=== PATIENT | male | born 1950 | race Caucasian/White ===

== ENCOUNTER 2020-09-12 09:25 | Inpatient (IN) | payer MEDICARE, MEDICAID ==
[~2020-09-12] VITALS: Ht 177.8 cm; Wt 109.0 kg
[2020-09-12] VITALS (8 sets, daily range): BP systolic 94–131; BP diastolic 67–76
[~2020-09-12 09:25] MED LIST: ALBU8.5H INH; ATOR40TA75 PO; ELIQ5TAB PO; HYDR-3490 PO; LISI10TA22; LISI20TA33 PO; SYMB16INH INH
[2020-09-12 11:01] LABS: BASO # 0.1 10^3/uL (0.0-0.2); BASO % 0.6 % (0.0-1.0); EOS # 0.1 10^3/uL (0.0-0.5); EOS % 1.2 % (0.0-3.0); HEMATOCRIT 46.1 % (42.0-52.0); HEMOGLOBIN 15.2 g/dl (13.5-17.5); LYMPH # 2.1 10^3/uL (1.5-5.0); LYMPH % 21.1 % (24.0-44.0); MEAN CORPUSCULAR HEMOGLOBIN 28.2 pg (27.0-33.0); MEAN CORPUSCULAR VOLUME 85.5 fl (80.0-96.0); MONO # 0.9 10^3/uL (0.0-0.8); MONO % 8.7 % (2.0-8.0); NEUTROPHILS # 6.8 10^3/uL (1.5-8.5); NEUTROPHILS % 68.3 % (36.0-66.0); PLATELET COUNT, AUTOMATED 301 10^3/uL (150-450); RED BLOOD COUNT 5.39 10^6/uL (4.30-6.10)
--- NOTE | 2020-09-12 11:17 | REP ---
INDICATION: sob. COMPARISON: None. TECHNIQUE: AP portable seated FINDINGS: The lungs are hyperinflated. There is no pleural effusion or lateral pleural thickening. No apical scarring or pneumothorax. Some patchy atelectatic change or fibrosis in the left base. No mass, dense consolidation with air bronchograms or pulmonary nodule. There cuffed bronchi in the perihilar regions which may reflect reactive airway disease or bronchitis. Pulmonary arteries are prominent centrally, this may reflect some degree of pulmonary artery hypertension, presumably on the basis of COPD. No gross cardiomegaly vascular redistribution or edema. Mildly calcified tortuous aorta without aneurysm. Airway intact. Some degenerative changes in the spine. No free air under the diaphragm. IMPRESSION: 1. Some changes of COPD with some perihilar peribronchial thickening that may reflect reactive airway disease or bronchitis. Some subtle patchy atelectasis or fibrotic change in the left base without dense consolidation, pleural effusion or other acute finding. <Electronically signed by Victor Manuel Dotson > 09/12/20 [id number]
--- NOTE | 2020-09-12 11:39 | REP ---
INDICATION: TIA. COMPARISON: None. TECHNIQUE: Helical scanning is acquired. 5 mm axial images were reformatted. Coronal MPR images were generated. FINDINGS: Bone window settings demonstrate an intact bony calvarium. There is no evidence of skull fracture or incidental bony calvarial lesion. The visualized paranasal sinuses appear clear. No intraorbital abnormality is seen. On soft tissue window setting images; the lateral, third, and fourth ventricles are normal in size and position. Edmonds-white differentiation pattern is normal above and below the tentorium. There are is no evidence of intracranial hemorrhage. No mass, edema, infarction, or midline shift is seen. No extra-axial fluid collection is appreciated. There is mild to moderate generalized volume loss. Vascular calcification is noted in the distal internal carotid arteries. Small-vessel atherosclerotic changes are seen in the periventricular white matter of the frontal lobes bilaterally. IMPRESSION: Vascular calcification, generalized volume loss, and small vessel changes. No acute intracranial abnormality.. <Electronically signed by Johnathan Nevarez > 09/12/20 [id number]
[2020-09-12] MEDS ORDERED: ONDANSETRON 4MG/2ML VIAL As Ordered ONE (12:56)
[2020-09-12] MEDS ORDERED: ISOVUE-370 76% 100ML VIAL As Ordered ONE (13:12)
[2020-09-12] MEDS ORDERED: ONDANSETRON 4MG/2ML VIAL IV ONE (13:35)
--- NOTE | 2020-09-12 13:37 | REP ---
INDICATION: trauma. COMPARISON: Noncontrast CT 1 hour and 46 minutes ago. TECHNIQUE: CT brain performed in the axial plane. Coronal reconstruction images are performed. FINDINGS: Lateral ventricles are midline symmetric and dilated there dilated in proportion to the diffuse cerebral atrophy which is moderate and greatest in the temporal and frontal lobes. Third and 4th ventricles are also mildly prominent and unchanged heterogeneous low-attenuation white matter changes bilaterally in the hemispheres representing chronic small vessel white matter ischemic change. Edmonds-white junction differentiation is well maintained. I do not see a vascular territory infarct, intracranial hemorrhage, mass, mass effect or edema. Subtle low-attenuation noted in the basal ganglia symmetric fashion over the thalami. These may be old thalamic infarcts, unchanged. Posterior fossa shows brainstem unremarkable there is no mass or bleed in the posterior fossa. The basal cisterns are intact. Skull base bone windows show mastoids intact. The sinuses show some new fluid in the left maxillary antrum and fracture of the lateral sinus wall superiorly as a new finding since the study at 11:05 A.M. Frontal sinuses sphenoids were intact the right maxillary antrum shows minor mucosal thickening in its floor. There is minor ethmoid sinus mucosal thickening in a deviation of the nasal septum towards the left. Patient now has a fracture of the left zygomatic arch as a new finding. There is soft tissue swelling adjacent. Right-sided zygomatic arch intact calvarium shows no fracture. The orbital floors appear intact. The orbital struts were intact. Left new IMPRESSION: No intracranial hemorrhage, acute infarct, mass or mass effect. Ventriculomegaly and proportionate atrophy, moderate. Chronic small vessel ischemic changes and symmetric old bilateral thalamic lacunar infarcts. These are stable. Air-fluid level in the left maxillary sinus with fracture of the lateral superior aspect of that sinus wall as a new finding compared to the study earlier today. In addition, adjacent to this there is a new fracture of the left zygomatic arch, also not on the earlier study. I cannot confirm other fractures in the interval. There are no other interval changes. <Electronically signed by Victor Manuel Dotson > 09/12/20 0255
--- NOTE | 2020-09-12 14:04 | REP ---
INDICATION: CVA COMPARISON: None. TECHNIQUE: Contrast enhancement dose is 100 mL of intravenous Isovue 370. Helical scanning is acquired. 2 mm axial images are re-formatted. Coronal and sagittal MPR images are generated. Coronal and sagittal MIP and oblique MPR images are generated. 3D surface rendered images are generated and viewed rotationally. FINDINGS: There is good opacification of the arterial tree. The aortic arch contains a few calcifications but no evidence of aneurysm or dissection is seen. Great vessel origins are unremarkable. There is spray artifact from un diluted contrast opacified blood in the subclavian artery obscuring a portion of the adjacent left common carotid artery. Otherwise, the left common carotid artery is unremarkable. The left carotid bifurcation is widely patent. There is no evidence of internal carotid artery stenosis or occlusion. The right common carotid artery is unremarkable. The right carotid bifurcation contains some calcification but there is no evidence of ICA stenosis. The cervical internal carotid artery on the right is unremarkable. The vertebral arteries are patent bilaterally and right is very slightly larger than the left. IMPRESSION: Minimal atherosclerotic changes. No high-grade stenosis or occlusion. [place] artifact interferes with visualization of the proximal most segment of the left common carotid artery. <Electronically signed by Johnathan Nevarez > 09/12/20 1400
--- NOTE | 2020-09-12 14:05 | REP ---
INDICATION: CVA. COMPARISON: None. TECHNIQUE: CT contrast dose: 100 ml of intravenous Isovue 370. CT technique: Helical scanning is acquired. 2 mm axial images are reformatted. Maximal intensity projection and multiplanar re-formation images are generated along with 3-D surface rendered color imaging. FINDINGS: There is good opacification of the arterial tree. The distal vertebral arteries are patent, right larger than left. Basilar artery is widely patent. Posterior cerebral and superior cerebellar vessels are unremarkable. The distal internal carotid arteries show calcification in the carotid siphons. No stenosis is seen. Anterior middle cerebral arteries are patent bilaterally. There is no evidence of baltazar aneurysm or arteriovenous malformation. No vessel cutoff is seen. Dural sinuses are unremarkable. No venous abnormality is observed. IMPRESSION: Unremarkable CT angiography of the brain. <Electronically signed by Johnathan Nevarez > 09/12/20 [id number]
--- NOTE | 2020-09-12 14:09 | REP ---
INDICATION: trauma. COMPARISON: None. TECHNIQUE: Trauma CT protocol with coronal and sagittal bone window reconstructions. FINDINGS: [employer] image shows cervical collar the lateral projection. The sagittal reconstruction show slight loss of lordosis which may be due to the cervical collar there is spondylosis with anterior osteophytes from C3-4 through C7-T1. Disc space heights slightly narrowed at all of these levels, sparing only the C2-3 level. There is no compression deformity or destructive lesion. No prevertebral swelling. Dens shows normal relationship with the anterior arch of C1 in the craniocervical junction intact. On the coronal projections the dens articulates a fairly symmetric fashion with the lateral masses of the C1. Posterior elements show spinous processes, lamina, pedicles, facets, transverse processes and transverse foramina without acute finding there are degenerative facet changes at multiple levels. No visible fractures multifactorial of contributions to some mild central canal stenosis at C4-5, C5-6 and C6-7. Uncinate spurring and facet arthropathy contribute to some mild encroachment at C3-4 on the right with the other foramina adequate or marginally adequate. The upper thoracic vertebral bodies and portions of the 1st 3 paired ribs appear grossly intact. Visible lung apices without acute finding. Neck soft tissues grossly intact. IMPRESSION: 1. Diffuse cervical spondylosis from C3-4 through C6-7 with combined factors contributing to some mild central canal stenosis at levels described above. No compression fracture or malalignment. No posterior element fracture. Some foraminal encroachment on the right at C3-4 with the other foramina adequate or marginally adequate. 2. Craniocervical junction intact the dens articulates normally with C1. No acute finding. <Electronically signed by Victor Manuel Dotson > 09/12/20 [id number]
[2020-09-12 14:51] LABS: RSV AMPLIFICATION NEGATIVE (NEGATIVE)
[2020-09-12] MEDS ORDERED: ACETAMINOPHEN TAB 650MG DOSE (2X325MG) PO PRN (15:15)
[2020-09-12] MEDS ORDERED: ALBUTEROL 90 MCG/ACT 8GM HFA INHALER INH PRN (15:15)
[2020-09-12] MEDS ORDERED: LIDOCAINE W/EPINEPHRINE 1% 20ML VIAL SC ONE (15:20)
--- NOTE | 2020-09-12 16:00 | HPEPDOC ---
General Date of Admission 09/12/20 Date of Service: Sep 12, 2020 Chief Complaint The patient is a 69-year-old male admitted with a reason for visit of Multiple Falls. Source: Patient Exam Limitations: No limitations History of Present Illness Patient 69 years old male with past medical history of hypercholesteremia, pulmonary emboli currently on Eliquis, hypertension presented to hospital with left arm weakness. Patient stated that yesterday he started feeling that left arm is weak, he has this feeling around couple of hours and then it completely resolved. Patient denied any fever, chills, nausea, vomiting any problem with speech, numbness. Today in the morning he started feeling that his left arm is weak and he decided to come to emergency. When he arrived to ER his symptoms resolved, CT scan was negative, patient was diagnosed with TIA and was ready to be discharged, however he developed mechanical fall, he fell down on the left side of his body, hit his head and was unresponsive. He did not have palpable pulses. 2 rounds of CPR was done, patient regained consciousness and pulse. When I saw him in ER he was lying on the bed. Patient reported that he has again left arm weakness and left leg weakness. CT head was repeated and it was negative for acute bleed or stroke, but shows Air-fluid level in the left maxillary sinus with fracture of the lateral superior aspect of that sinus wall as a new finding compared to the study earlier today. In addition, adjacent to this there is a new fracture of the left zygomatic arch, also not on the earlier study. Neck CTA shows no high- grade stenosis or occlusion, CTA of the brain unremarkable, Dr. Burgos was contacted by ER physician Dr. Magana, he recommended broad-spectrum antibiotics no surgical intervention indicated at this time. Home Medications Scheduled Apixaban (Eliquis) 5 Mg Tablet, 5 MG PO BID, (Reported) Atorvastatin Calcium (Atorvastatin Calcium) 40 Mg Tablet, 40 MG PO DAILY, ( Reported) Budesonide/Formoterol (Symbicort 160-4.5 Mcg Inhaler) 6 Gm Hfa.aer.ad, 2 PUFFS INH BID, (Reported) Hydrochlorothiazide (Hydrochlorothiazide) 25 Mg Tablet, 25 MG PO DAILY, (Reported) Lisinopril (Lisinopril) 20 Mg Tablet, 20 MG PO DAILY, (Reported) Scheduled PRN Albuterol Sulfate (Albuterol Sulfate Hfa) 8.5 Gm Hfa.aer.ad, 2 PUFFS INH QID PRN for SHORTNESS OF BREATH, (Reported) Allergies Coded Allergies: No Known Allergies (Verified Allergy, Unknown, 08/24/20) Past Medical History Medical History 1. Hypertension 2. Bronchial asthma 3. obesity 4. Arthritis. Patient has been prescribed walker and cane but he does not use it Surgical History Patient has hernia but never had surgery for that. Family History I personally reviewed family history and found not pertinent Social History * Smoker: Denies Alcohol: Denies Drugs: denies A-FIB/CHADSVASC A-FIB History Current/History of A-Fib/PAF?: No Current PO Anticoag Therapy: No Review of Systems Constitutional: Denies: Chills, Fever Eyes: Denies: Pain ENT: Denies: Head Aches Skin: Reports: Breakdown (Left forehead laceration); Denies: Rash Pulmonary: Denies: Dyspnea Cardiovascular: Denies: Chest Pain Gastrointestinal: Denies: Nausea, Vomiting Hematologic: Denies: Bruising Musculoskeletal: Denies: Neck Pain Neurological: Reports: Weakness (Left arm and left leg) Psych: Reports: Mood Normal Physical Examination General Exam: Positive: Alert, Cooperative Eye Exam: Positive: PERRLA ENT Exam: Positive: Other ENT (Left forearm laceration, tenderness over left zygomatic bone); Negative: Atraumatic Neck Exam: Positive: Supple Chest Exam: Positive: Clear to auscultation Heart Exam: Positive: Rate Normal Telemetry: Positive: No significant arrhythmia Extremity Exam: Negative: Clubbing Skin Exam: Positive: Nl turgor and temperature Neuro Exam: Positive: Strength at 5/5 X4 ext (Left upper extremities 2/5, left lower extremities 2/5, right upper extremities 4/5, right lower extremities 3/5), Reflexes 2+ Psych Exam: Positive: Oriented x 3 Vital Signs Vital Signs Date Time Temp Pulse Resp B/P (MAP) Pulse Ox O2 Delivery O2 Flow Rate FiO2 09/12/20 14:00 64 97 09/12/20 12:30 137/97 (110) 09/12/20 10:00 Room Air 09/12/20 09:44 97.6 26 Laboratory Data Labs 24H Laboratory Tests 2 09/12/20 10:50: Immature Granulocyte % (Auto) 0.1, Neutrophils (%) (Auto) 68.3H, Lymphocytes (%) (Auto) 21.1L, Monocytes (%) (Auto) 8.7H, Eosinophils (%) (Auto) 1.2, Basophils (%) (Auto) 0.6, Neutrophils # (Auto) 6.8, Lymphocytes # (Auto) 2.1, Monocytes # (Auto) 0.9H, Eosinophils # (Auto) 0.1, Basophils # (Auto) 0.1, Nucleated Red Blood Cells % (auto) 0.0 09/12/20 10:51: POC Glucose (Misc Panel) 105, POC Sodium (Misc Panel) 137, POC Potassium (Misc Panel) 4.4, POC Chloride (Misc Panel) 100, POC Total CO2 (Misc Panel) 23.0, POC Blood Urea Nitrogen (Misc Panel 19, POC Ionized Calcium (Misc Panel) 5.0, POC Creatinine (Misc Panel) 1.4H, POC Hematocrit (Misc Panel) 46.0 09/12/20 14:02: Coronavirus (COVID-19)(PCR) NEGATIVE, Influenza Type A (RT-PCR) NEGATIVE, Influenza Type B (RT-PCR) NEGATIVE, Respiratory Syncytial Virus (PCR) NEGATIVE CBC/BMP Laboratory Tests 09/12/20 10:50 Assessment/Plan Patient 69 years old male with past medical history of hypercholesteremia, pulmonary emboli currently on Eliquis, hypertension presented to hospital with left arm weakness. Patient stated that yesterday he started feeling that left arm is weak, he has this feeling around couple of hours and then it completely resolved. Patient denied any fever, chills, nausea, vomiting any problem with speech, numbness. Today in the morning he started feeling that his left arm is weak and he decided to come to emergency. When he arrived to ER his symptoms resolved, CT scan was negative, patient was diagnosed with TIA and was ready to be discharged, however he developed mechanical fall, he fell down on the left side of his body, hit his head and was unresponsive. He did not have palpable pulses. 2 rounds of CPR was done, patient regained consciousness and pulse. When I saw him in ER he was lying on the bed. Patient reported that he has again left arm weakness and left leg weakness. CT head was repeated and it was negative for acute bleed or stroke, but shows Air-fluid level in the left maxillary sinus with fracture of the lateral superior aspect of that sinus wall as a new finding compared to the study earlier today. In addition, adjacent to this there is a new fracture of the left zygomatic arch, also not on the earlier study. Neck CTA shows no high- grade stenosis or occlusion, CTA of the brain unremarkable, Dr. Burgos was contacted by ER physician Dr. Magana, he recommended broad-spectrum antibiotics no surgical intervention indicated at this time. Problems (1) CVA (cerebral vascular accident) Status: Acute Problem Text: CT head did not show acute bleeding or stroke CTA neck did not show significant stenosis, CTA brain negative for stenosis or occlusion We will proceed with MRI Continue statin Patient takes anticoagulation with Eliquis I discussed the case with neurologist Dr. Hagan, he recommended to start aspirin 81 mg if MRI negative for bleeding. We will continue to continue to monitor neuro vital signs (2) Closed fracture of left zygomatic bone Status: Acute Problem Text: No indication for surgical intervention for now (3) Maxillary fracture, left side, initial encounter for closed fracture Status: Acute Problem Text: No indication for surgical intervention for now Dr. Diaz recommended 7 days of broad-spectrum antibiotic (4) History of pulmonary embolism Status: Chronic Problem Text: We will continue Eliquis 5 mg twice daily (5) Hypertension Status: Chronic Problem Text: Continue home meds Blood pressure is under control (6) Hyperlipidemia Status: Chronic Problem Text: Continue statin (7) Unresponsiveness Status: Acute Problem Text: I discussed the case with Dr. Edwards emergency physician, most likely patient developed vasovagal syncope. No evidence of cardiac arrest on monitor. When patient regained consciousness he was on the sinus rhythm Plan / VTE VTE Prophylaxis Ordered?: Yes SANTOS LEZAMA DO Sep 12, 2020 16:00
[2020-09-12 17:44] LABS: ALBUMIN 3.6 GM/DL (3.2-5.2); BILIRUBIN,DIRECT 0.2 MG/DL (0.0-0.2); BILIRUBIN,TOTAL 0.8 MG/DL (0.2-1.0); TOTAL PROTEIN 6.9 GM/DL (6.4-8.2)
[2020-09-12] MEDS ORDERED: SYMBICORT 160/4.5MCG INHALER 6GM INH SCH (20:00)
--- NOTE | 2020-09-12 20:03 | REPVR ---
PROCEDURE INFORMATION: Exam: MR Head Without Contrast Exam date and time: 09/12/2020 7:10 PM Age: 69 years old Clinical indication: Injury or trauma; Without loss of consciousness; Without residual foreign body; Walking, difficulty and weakness, extremity; Bilateral; Injury date: 09/12/20; Injury details: Fall head lac to RT forehead; Patient HX: Fall with head laceration RT forehead, bue and le weakness; Additional info: Stroke TECHNIQUE: Imaging protocol: MR of the head without contrast. COMPARISON: CT Head without contrast 09/12/2020 12:49 PM FINDINGS: Brain: No acute infarct identified on the diffusion-weighted imaging. No parenchymal hemorrhage. The brain demonstrates generalized volume loss. Patchy foci of increased signal intensity in the deep and subcortical white matter most likely representing chronic small vessel ischemic change. Small areas of FLAIR signal abnormality: right frontal, left parietal and left occipital, likely focal chronic infarcts. There are focal, chronic thalamic lacunar infarcts. Cerebral ventricles: The ventricles are enlarged in keeping with volume loss. Bones/joints: Unremarkable. Paranasal sinuses: Fluid is again demonstrated in the left maxillary sinus. Elsewhere, sinus mucosal thickening. Retention cyst or polyp in the right maxillary sinus. Mastoid air cells: Normal as visualized. No mastoid effusion. Orbital cavity: Unremarkable. Soft tissues: Unremarkable. IMPRESSION: 1. Images are motion degraded. 2. No evidence of acute infarct. Electronically signed by: Jessa Abbott On 09/12/2020 20:02:51 PM
--- NOTE | 2020-09-12 20:06 | REPVR ---
PROCEDURE INFORMATION: Exam: MRA Head Without Contrast; Arteriography Exam date and time: 09/12/2020 7:37 PM Age: 69 years old Clinical indication: Patient HX: Fall with head laceration RT forehead, bue and le weakness; Additional info: Doctor request TECHNIQUE: Imaging protocol: Magnetic resonance angiography head without contrast. Exam focused on the arteries. COMPARISON: CT ANGIO HEAD 09/12/2020 1:13 PM FINDINGS: ANTERIOR CIRCULATION: Right internal carotid artery: Intracranial segment is patent with no significant stenosis. No aneurysm. Right middle cerebral artery: No occlusion or significant stenosis. No aneurysm. Right anterior cerebral artery: No occlusion or significant stenosis. No aneurysm. Left internal carotid artery: Intracranial segment is patent with no significant stenosis. No aneurysm. Left middle cerebral artery: No occlusion or significant stenosis. No aneurysm. Left anterior cerebral artery: Patent. No aneurysm. 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 POSTERIOR CIRCULATION: Right vertebral artery: The right vertebral artery is below the imaging slab. Left vertebral artery: The left vertebral artery is below the imaging slab. Basilar artery: No occlusion or significant stenosis. No aneurysm. Right posterior cerebral artery: No occlusion or significant stenosis. No aneurysm. Left posterior cerebral artery: No occlusion or significant stenosis. No aneurysm. IMPRESSION: No proximal intracranial arterial occlusion. Electronically signed by: Jessa Abbott On 09/12/2020 20:05:54 PM
[2020-09-12] MEDS ORDERED: APIXABAN 5 MG TAB (ELIQUIS) PO SCH (21:00)
[2020-09-12] MEDS ORDERED: AUGMENTIN 875 MG TAB PO SCH (21:00)
--- NOTE | 2020-09-12 21:20 | REPVR ---
PROCEDURE INFORMATION: Exam: MR Cervical Spine Without Contrast Exam date and time: 09/12/2020 8:29 PM Age: 69 years old Clinical indication: Injury or trauma; Without foreign body; Injury date: 09/12/20; Injury details: Fall with head laceration RT forehead, bue and le weakness; Additional info: R/O spine compression TECHNIQUE: Imaging protocol: Multiplanar magnetic resonance images of the cervical spine without contrast. COMPARISON: CT Spine,cervical w/o contrast 09/12/2020 12:49 PM FINDINGS: Vertebrae: There is straightening of the cervical lordosis which may be positional or due to muscle spasm. No acute fracture seen. Spinal cord: Suspect abnormal cord signal on the T2 weighted imaging at the C3-C4 level. Disc desiccation from C2-C3 through C6-C7. [id number] disc height loss and spondylosis from C3-C4 through C6-C7. Mild endplate degenerative changes elsewhere. C2-C3: The central spinal canal remains patent. No high-grade neural foraminal stenoses. C3-C4: Disc osteophyte complex causing moderate to severe central spinal canal stenosis; a paucity of CSF anterior and posterior to the cord. On the T2 weighted imaging, concern for patchy increased signal intensity in the cervical cord, for example image 20 series 501, image 7 series 401. Uncovertebral and facet arthropathy causing severe bilateral neural foraminal stenoses. C4-C5: Disc osteophyte complex and ligamentum flavum buckling causing moderate central spinal canal stenosis. Uncovertebral and facet arthropathy causing severe bilateral neural foraminal stenoses. C5-C6: Left eccentric disc osteophyte complex causing mild central spinal canal stenosis. Slight left ventral cord flattening without cord myelopathy. Uncovertebral and facet arthropathy causing moderate to severe bilateral neural foraminal stenoses. C6-C7: The central spinal canal is patent. Uncovertebral and facet arthropathy causing moderate right neural foraminal stenosis. The left neural foramen remains patent. C7-T1: Disc osteophyte complex does not contribute to significant central spinal canal stenosis. Uncovertebral and facet arthropathy causing moderate right and mild left neural foraminal stenoses. Soft tissues: No discrete high-grade ligamentous injury identified. Vertebral arteries: Expected flow voids in the vertebral arteries. IMPRESSION: 1. Images are motion degraded. 2. Moderate to severe central spinal canal stenosis at C3-C4. Suspect cord myelomalacia versus myelopathy (could reflect contusion or inflammation). To better assess the C3-C4 level, limited repeat MRI imaging could be obtained given the presence of motion artifacts on this study. 3. Moderate central spinal canal stenosis at C4-C5. 4. Multilevel high-grade degenerative neural foraminal stenoses. Electronically signed by: Jessa Abbott On 09/12/2020 21:19:58 PM
[2020-09-12] MEDS ORDERED: NS 1,000 ML IV SCH (21:25)
--- NOTE | 2020-09-12 21:25 | DS.PDOC ---
Discharge Summary General Date of Admission Sep 12, 2020 at 15:11 Date of Discharge 09/12/20 Discharge Summary PROCEDURES PERFORMED DURING STAY: [None]. ADMITTING/DISCHARGE DIAGNOSES: Suspected acute cord compression resulting in acute myelopathy COMPLICATIONS/CHIEF COMPLAINT: Cva,Closed Fracture Of Left Zygomatic Bone,Fall. HISTORY OF PRESENT ILLNESS: From admitting physicians H&P: Patient 69 years old male with past medical history of hypercholesteremia, pulmonary emboli currently on Eliquis, hypertension presented to hospital with left arm weakness. Patient stated that yesterday he started feeling that left arm is weak, he has this feeling around couple of hours and then it completely resolved. Patient denied any fever, chills, nausea, vomiting any problem with speech, numbness. Today in the morning he started feeling that his left arm is weak and he decided to come to emergency. When he arrived to ER his symptoms resolved, CT scan was negative, patient was diagnosed with TIA and was ready to be discharged, however he developed mechanical fall, he fell down on the left side of his body, hit his head and was unresponsive. He did not have palpable pulses. 2 rounds of CPR was done, patient regained consciousness and pulse. When I saw him in ER he was lying on the bed. Patient reported that he has again left arm weakness and left leg weakness. CT head was repeated and it was negative for acute bleed or stroke, but shows Air-fluid level in the left maxillary sinus with fracture of the lateral superior aspect of that sinus wall as a new finding compared to the study earlier today. In addition, adjacent to this there is a new fracture of the left zygomatic arch, also not on the earlier study. Neck CTA shows no high-grade stenosis or occlusion, CTA of the brain unremarkable, Dr. Burgos was contacted by ER physician Dr. Magana, he recommended broad-spectrum antibiotics no surgical intervention indicated at this time. HOSPITAL COURSE: My involvement in the care of the patient was essentially to transfer him overnight to [facility] there was concern that the patient had acute cord compression causing upper and lower extremity weakness. I spoke with neurologist Dr. Luz who recommended transfer I also spoke with [facility] neuro ICU Dr. Lancaster who accepted the patient and recommended patient be airlifted - unfortunately due to bad weather there wont be flights tonight so patient will be transferred by ambulance instead. Patient was hemodynamically stable at time of transfer his blood pressure was 127/76 with a map of 94. IV fluids were started. MRI cervical and thoracic spine imaging was pushed to [facility] by her phlebotomy support tech. All imaging done to be printed and given at time of transfer. DISCHARGE MEDICATIONS: Please see below. ALLERGIES: Please see below. PHYSICAL EXAMINATION ON DISCHARGE: VITAL SIGNS: Please see below. Patient was able to speak in full sentences did not appear to be in distress he is breathing comfortably at 98% on room air his heart rate was regularly regular without appreciable murmurs. He had loss of sensation over his upper and lower extremities. He complete loss of strength in his left upper and lower extremit ies unable to move against gravity or wiggle his toes or fingers. On the right side he was able to wiggle his fingers on the right upper extremity but not against gravity he was also able to slightly wiggle his right toes but unable to move his leg against gravity. LABORATORY DATA: Please see below. IMAGING: See chart PROGNOSIS: Guarded ACTIVITY: [As tolerated]. DISCHARGE PLAN: Transfer to [facility] to neuro ICU DISCHARGE CONDITION: [Stable]. TIME SPENT ON DISCHARGE: 40 minutes. Vital Signs/I&Os Vital Signs Date Time Temp Pulse Resp B/P (MAP) Pulse Ox O2 Delivery O2 Flow Rate FiO2 09/12/20 18:05 67 94/67 (76) 95 09/12/20 17:30 97.8 16 Room Air 09/12/20 17:19 2.0 Laboratory Data Labs 24H Laboratory Tests 2 09/12/20 10:50: Immature Granulocyte % (Auto) 0.1, Neutrophils (%) (Auto) 68.3H, Lymphocytes (%) (Auto) 21.1L, Monocytes (%) (Auto) 8.7H, Eosinophils (%) (Auto) 1.2, Basophils (%) (Auto) 0.6, Neutrophils # (Auto) 6.8, Lymphocytes # (Auto) 2.1, Monocytes # (Auto) 0.9H, Eosinophils # (Auto) 0.1, Basophils # (Auto) 0.1, Nucleated Red Blood Cells % (auto) 0.0 09/12/20 10:51: POC Glucose (Misc Panel) 105, POC Sodium (Misc Panel) 137, POC Potassium (Misc Panel) 4.4, POC Chloride (Misc Panel) 100, POC Total CO2 (Misc Panel) 23.0, POC Blood Urea Nitrogen (Misc Panel 19, POC Ionized Calcium (Misc Panel) 5.0, POC Creatinine (Misc Panel) 1.4H, POC Hematocrit (Misc Panel) 46.0 09/12/20 14:02: Coronavirus (COVID-19)(PCR) NEGATIVE, Influenza Type A (RT-PCR) NEGATIVE, Influenza Type B (RT-PCR) NEGATIVE, Respiratory Syncytial Virus (PCR) NEGATIVE 09/12/20 15:52: Total Bilirubin 0.8, Direct Bilirubin 0.2, Aspartate Amino Transf (AST/SGOT) 13, Alanine Aminotransferase (ALT/SGPT) 30, Alkaline Phosphatase 119H, Total Protein 6.9, Albumin 3.6, Albumin/Globulin Ratio 1.1, Triglycerides Level 108, Total Cholesterol 108, LDL Cholesterol 50, Non-HDL Cholesterol (LDL + VLDL) 72, Total HDL Cholesterol 36L, Cholesterol/HDL Ratio 3.000 CBC/BMP Laboratory Tests 09/12/20 10:50 Discharge Medications Scheduled Apixaban (Eliquis) 5 Mg Tablet, 5 MG PO BID, (Reported) Atorvastatin Calcium (Atorvastatin Calcium) 40 Mg Tablet, 40 MG PO DAILY, (Reported) Budesonide/Formoterol (Symbicort 160-4.5 Mcg Inhaler) 6 Gm Hfa.aer.ad, 2 PUFFS INH BID, (Reported) Hydrochlorothiazide (Hydrochlorothiazide) 25 Mg Tablet, 25 MG PO DAILY, (Reported) Lisinopril (Lisinopril) 20 Mg Tablet, 20 MG PO DAILY, (Reported) Scheduled PRN Albuterol Sulfate (Albuterol Sulfate Hfa) 8.5 Gm Hfa.aer.ad, 2 PUFFS INH QID PRN for SHORTNESS OF BREATH, (Reported) Allergies Coded Allergies: No Known Allergies (Verified Allergy, Unknown, 08/24/20) DENICE PIERCE MD Sep 12, 2020 21:25
--- NOTE | 2020-09-12 21:35 | REPVR ---
PROCEDURE INFORMATION: Exam: MR Thoracic Spine Without Contrast Exam date and time: 09/12/2020 9:03 PM Age: 69 years old Clinical indication: Injury or trauma; Without foreign body; Injury date: 09/12/20; Injury details: Fall with head laceration RT forehead, bue and le weakness; Additional info: R/O spine compression TECHNIQUE: Imaging protocol: Multiplanar magnetic resonance images of the thoracic spine without intravenous contrast. COMPARISON: CT Spine,cervical w/o contrast 09/12/2020 12:49 PM FINDINGS: Vertebrae: Mild exaggeration of the thoracic kyphosis. No acute fracture seen. A 12 mm T1 and T2 hypointense lesion in T8. An 8 mm T1 and T2 hypointense lesion in T9. T1 isointense, STIR hyperintense lesion in the left T9 articular pillar measuring approximately 11 mm on image 3 of series 1201. Spinal cord: See T6-T7 below. [id number] mid and lower thoracic degenerative disc disease with endplate Schmorl's nodes. T1-T2: No significant disc disease. No significant spinal canal stenosis. T2-T3: No significant disc disease. No significant spinal canal stenosis. T3-T4: Small left paracentral disc protrusion does not contribute to central spinal canal stenosis. T4-T5: No significant disc disease. No significant spinal canal stenosis. T5-T6: 4-5 mm caudally migrating central disc extrusion abuts ventral thoracic cord without cord myelopathy. Central spinal canal stenosis is mild. T6-T7: 5-6 mm central disc protrusion indents ventral thoracic cord causing mild central spinal canal stenosis. There is suggestion of trace right cord myelopathy or myelomalacia on image 9 series 1101. T7-T8: No significant disc disease. No significant spinal canal stenosis. T8-T9: No significant disc disease. No significant spinal canal stenosis. T9-T10: No significant disc disease. No significant spinal canal stenosis. T10-T11: No significant disc disease. No significant spinal canal stenosis. T11-T12: No significant disc disease. No significant spinal canal stenosis. Soft tissues: Unremarkable. IMPRESSION: 1. Images are mildly motion degraded. 2. Several nonspecific lesions in the bone marrow. Please correlate with patient risk factors for osseous metastatic disease. Suggest postcontrast MRI sequences of the thoracic spine for further characterization. 3. Posterior disc contour abnormalities at T5-6 and T6-7 do abut the thoracic spinal cord. Central spinal canal stenoses are mild. There is suggestion of trace right cord myelomalacia versus myelopathy around the T6-7 level. Electronically signed by: Jessa Abbott On 09/12/2020 21:34:56 PM
--- NOTE | 2020-09-12 22:10 | ECGEPIP ---
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 No remarkable changes but slower heart rate Electronically Signed on 09-12-2020 22:10:26 EDT by Reyes Thakur
[2020-09-13] MEDS ORDERED: ATORVASTATIN 20 MG TAB PO SCH (09:00)
--- NOTE | 2020-09-14 07:13 | ECGEPIP ---
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
--- NOTE | 2020-09-14 12:31 | CR ---
CONSULTATION DATE: 09/12/2020 REFERRING PHYSICIAN: SANTOS LEZAMA DO REASON FOR CONSULTATION: Multiple falls, suspicion of TIA. HISTORY OF PRESENT ILLNESS: Axel Jordan is a 69-year-old right handed male with a past medical history significant for hypercoagulable state of unclear etiology with DVT and multiple pulmonary emboli current on Eliquis. The patient presented to the hospital with transient left upper extremity weakness which resolved by the time he was in the ER. The patient signing paperwork and suddenly was found on the ground bleeding from his head with a facial fracture. Repeat head CT did not reveal any acute stroke or hemorrhage and CT of the cervical spine was negative for any fracture. After this second fall, the patient was noted to have again worsening weakness of the left arm and left leg. Upon admission the admitting provider noted that he was slightly weak on the right arm and right leg as well. The nursing staff noted that the patient was having significant weakness in bilateral lower extremities and in the upper extremities. An MRI was obtained which was negative for acute stroke. On examination the patient was quadriplegic with hyperreflexic and positive Babinski signs. Stat MRI of the cervicothoracic spine was obtained which revealed cord signal edema at C3-4 possibly from cord compression versus cord contusion. The recommended was to be transferred emergently to a higher level of care for surgical intervention. The patient was accepted by [facility] Neuro ICU Service with concurrent management with Neurosurgery. The patient states that he suddenly became weak in all four extremities today but prior to that he was having transient weakness in the left upper extremity. The patient noted most of the weakness in the left arm earlier in the day. He denied any chest pain, shortness of breath, dysarthria, diplopia or dysphagia. A 14 point review of systems was obtained and was negative except as per HPI. PAST MEDICAL HISTORY: Hypertension, bronchial asthma, obesity, arthritis, chronic hypercoagulable state with multiple DVTs and multiple PEs on anticoagulation with Eliquis. ALLERGIES: No known drug allergies. HOME MEDICATIONS: 1. Eliquis 5 mg b.i.d. 2. Atorvastatin 40 mg daily. 3. Symbicort 160-4.5 mcg inhaler two puffs b.i.d. 4. Hydrochlorothiazide 25 mg daily. 5. Lisinopril 20 mg daily. FAMILY HISTORY: Noncontributory. SOCIAL HISTORY: The patient denies use of any tobacco, alcohol or illicit drugs. PHYSICAL EXAMINATION: VITAL SIGNS: Blood pressure was 137/97, pulse rate 64, respiratory rate was 26, temperature is 97.6 degrees Fahrenheit, oxygenation was 97% on room air. GENERAL: Patient was oriented to person, place and time. Speech, language, comprehension, repetition are intact. NEUROLOGICAL: Pupils were 3 mm round and reactive to light. Extraocular movements were intact. There was no facial weakness. Tongue is midline. Hearing is equal to finger rub. The patient had Grade 3- strength in the hand venue manager and 3+ strength in the biceps and triceps. He had 2+ strength in his lower extremities and could barely wiggle his toes. He could not extend his knees against gravity in both legs. Deep tendon reflexes were 3+ throughout with positive Babinski sign. Romberg, testing gait were deferred. Patient was quadriplegic on exam. Sensory was intact to light touch with the presence of paresthesias in the lower extremities. Vibration sense was diminished distally suggesting peripheral polyneuropathy as well with a sensory gradient improving in the lower extremities at the ankles and knees and coordination did not reveal any gross ataxia but the patient had some moderate difficulty with finger to nose given his degree of weakness. ASSESSMENT: 1. Cervical spinal cord compression/contusion, possibly resulting from unwitnessed fall earlier in the Emergency Department. No evidence of acute stroke. Continuation of Eliquis recommended at 5 mg twice a day. No need to resume aspirin 81 mg therapy. This can be discontinued. Patient's weakness is the result of cervical cord etiology and not stroke. Management of closed fracture of left zygomatic bone as per ENT and General Surgery. 2. Transfer the patient to higher level of care emergently for neurosurgical evaluation for possible decompensation of the cervical spinal cord versus acute management for cord edema. 3. No evidence of acute stroke at this time.
== END 2020-09-12 23:35 | disposition other institution (70) | DRG 92 ==
LOC: M ED 09:25 → EDBD 09:25 → M ED INP 15:11 → ENRESERV 15:43 → M ICU 17:30
PROVIDERS: ADMIT Internal Medicine; ATTEND Internal Medicine
DX: G95.20 Unspecified cord compression (principal); S02.40FA Zygomatic fracture, left side, initial encounter for closed fracture; E78.5 Hyperlipidemia, unspecified; Z86.711 Personal history of pulmonary embolism; Z79.01 Long term (current) use of anticoagulants; I10 Essential (primary) hypertension; J45.909 Unspecified asthma, uncomplicated; E66.9 Obesity, unspecified; M19.90 Unspecified osteoarthritis, unspecified site; Z91.19 Patient's noncompliance with other medical treatment and regimen; Z20.822 Contact with and (suspected) exposure to COVID-19; W01.0XXA Fall on same level from slipping, tripping and stumbling without subsequent striking against object, initial encounter; Y92.238 Other place in hospital as the place of occurrence of the external cause; R46.4 Slowness and poor responsiveness; G95.9 Disease of spinal cord, unspecified